=== PATIENT | female | born 1955 | race Hispanic/Latino ===

== ENCOUNTER → 2017-12-11 | Outpatient (CLI) | payer MEDICAID ==
[~2017-12-11] MED LIST: ACETAMINOPHEN PO; DULO60CA44 PO; ELET40TA PO; HYDROCODONE PO; LEVE500T19 PO; LORA1TAB3 PO; MIRT30TA6 PO; OLAN5TAB27 PO; OLME40TA8 PO; PREM125 PO; TIZA4CAP8 PO; ZOLPIDEM PO
== END ==
LOC: OIH 09:42
PROVIDERS: ATTEND Internal Medicine
DX: J45.20 Mild intermittent asthma, uncomplicated (principal)
CPT/HCPCS: 71046

== ENCOUNTER → 2019-07-19 | Outpatient (CLI) | payer MEDICAID | END | disposition home or self-care (01) | LOC: OIH 16:33 | PROVIDERS: ATTEND Internal Medicine | DX: H05.222 Edema of left orbit (principal); F41.9 Anxiety disorder, unspecified; F32.9 Major depressive disorder, single episode, unspecified; J45.909 Unspecified asthma, uncomplicated; Z88.5 Allergy status to narcotic agent; Z88.8 Allergy status to other drugs, medicaments and biological substances | CPT/HCPCS: 70150; 70250 ==

== ENCOUNTER → 2023-12-14 | Outpatient (CLI) | payer OTHER, MEDICAID ==
[~2023-12-14] MED LIST changes: -DULO60CA44 PO; +DULO60CA45 PO; +MIRT-93 PO; -MIRT30TA6 PO; -OLAN5TAB27 PO; +OLAN5TAB76 PO; +OLME40TA70 PO; -OLME40TA8 PO
== END | disposition home or self-care (01) ==
LOC: OIH 11:56
PROVIDERS: ATTEND Internal Medicine
DX: J45.909 Unspecified asthma, uncomplicated (principal); I10 Essential (primary) hypertension; M47.815 Spondylosis without myelopathy or radiculopathy, thoracolumbar region
CPT/HCPCS: 71046

== ENCOUNTER → 2024-05-27 | Outpatient (CLI) | payer OTHER, MEDICAID ==
[~2024-05-27] VITALS: Ht 162.6 cm; Wt 69.8 kg
[~2024-05-27] MED LIST changes: +ALBU1.252 IH; +ALBU18HF7 IH; +ATOG60TA PO; +CARB-38 PO; +CARI3CAP PO; +DICY10CA2 PO; +FAMO40TA7 PO; +FLUT16H NS; +FOLI0.8T22 PO; +FOLI0.8T53 PO; +ISOS30TA92 PO; +LEVO25CA4 PO; +LOSA100T59 PO; +METO-391 PO; +METO5TAB2 PO; +OMEP40CA21 PO; +ONDA-104 PO; +POTA-202 PO; +RIME75TA PO; +SOLI10TA7 PO; +TRAZ-185 PO; +TRIH2TAB3 PO; +TRINTELLIX PO
[2024-05-27 09:50] VITALS: BP 87/47; PULSE 54; RESP 18; TEMP 97.1
[2024-05-27 09:57] LABS: BASOPHILS # (AUTO) 0.02 K/uL (0.00-0.20); BASOPHILS % (AUTO) 0.4 % (0.0-5.0); EOSINOPHILS # (AUTO) 0.03 K/uL (0.00-0.70); EOSINOPHILS % (AUTO) 0.5 % (0.0-8.0); HEMATOCRIT 33.1 % (36-48); IMMATURE GRANULOCYTE ABSOLUTE 0.03 K/uL (0-1); LYMPHOCYTES # (AUTO) 2.3 K/uL (1.0-4.8); LYMPHOCYTES % (AUTO) 41.8 % (21.0-51.0); MEAN CORPUSCULAR HEMOGLOBIN 31.2 pg (27.0-33.0); MEAN CORPUSCULAR HGB CONC 32.3 g/dL (32.0-36.0); MEAN CORPUSCULAR VOLUME 96.5 fL (79-99); MONOCYTES # (AUTO) 0.5 K/uL (0.1-1.0); MONOCYTES % (AUTO) 9.5 % (3.0-13.0); NEUTROPHILS # (AUTO) 2.6 K/uL (1.8-7.7); NEUTROPHILS % (AUTO) 47.3 % (40.0-77.0); PLATELET COUNT (AUTO) 241 K/uL (130-400); RED BLOOD CELL COUNT(AUTO) 3.43 MIL/uL (4.00-5.50); RED CELL DISTRIBUTION WIDTH 13.2 % (11.0-15.5); WHITE BLOOD COUNT (AUTO) 5.5 K/uL (4.8-10.8)
[2024-05-27 10:04] LABS: CREATININE 2.1 mg/dL (0.5-1.0); POTASSIUM 4.6 mmol/L (3.5-5.1)
[2024-05-27 12:06] LABS: BAND NEUTROPHILS % (MANUAL) 3 % (0-2); LYMPHOCYTES % (MANUAL) 42 % (22-44); MAN.DIFF COMMENT-IMPRESSION MANUAL DIFFERENTIAL; MONOCYTES % (MANUAL) 4 % (2-9); MYELOCYTES % 1 % (0-0); REACTIVE LYMPHOCYTES 1 % (0-0); SEGMENTED NEUTROPHILS % 49 % (40-70); TOTAL CELLS COUNTED 100
[2024-05-27 12:08] LABS: PLATELET MORPHOLOGY COMMENT ADEQUATE
== END | disposition home or self-care (01) ==
LOC: DAH 10:00 → EDSTATUS 05-28 16:00
PROVIDERS: ATTEND Surgery
DX: Z01.818 Encounter for other preprocedural examination (principal); K80.20 Calculus of gallbladder without cholecystitis without obstruction; G20.B2 Parkinson's disease with dyskinesia, with fluctuations; R00.2 Palpitations; I10 Essential (primary) hypertension; F41.9 Anxiety disorder, unspecified; F32.A Depression, unspecified; E03.9 Hypothyroidism, unspecified; M19.90 Unspecified osteoarthritis, unspecified site; G40.909 Epilepsy, unspecified, not intractable, without status epilepticus; Z90.710 Acquired absence of both cervix and uterus; Z79.899 Other long term (current) drug therapy; Z88.0 Allergy status to penicillin; Z88.5 Allergy status to narcotic agent; Z80.42 Family history of malignant neoplasm of prostate; Z98.890 Other specified postprocedural states; Z53.8 Procedure and treatment not carried out for other reasons
CPT/HCPCS: 36415; 80048; 85025; 86850; 86900; 86901; 93005

== ENCOUNTER 2024-06-27 06:13 | Day surgery (SDC) | payer OTHER, MEDICARE ==
[2024-06-25 10:34] VITALS: BP 151/73; PULSE 71; RESP 16; TEMP 97.3
[2024-06-27] VITALS (12 sets, daily range): BP systolic 120–154; BP diastolic 51–69; PULSE 63–83; RESP 16–19; TEMP 97.6–98
[~2024-06-27] VITALS: Ht 162.6 cm; Wt 70.6 kg
[~2024-06-27 06:13] MED LIST changes: -ACETAMINOPHEN PO; -CARI3CAP PO; +CEFD300C3 PO; -DULO60CA45 PO; -ELET40TA PO; -HYDROCODONE PO; -LEVE500T19 PO; -LORA1TAB3 PO; +LURA20TA PO; -MIRT-93 PO; +MONT-39 PO; -OLAN5TAB76 PO; -OLME40TA70 PO; +PANT40TA54 PO; -PREM125 PO; -RIME75TA PO; -ZOLPIDEM PO
[2024-06-27] MEDS ORDERED: BUPIvacaine/PF 0.25% 30ML VIAL IJ ONE (06:58)
[2024-06-27] MEDS ORDERED: INDOCYANINE GREEN 25 MG VIAL IJ ONE (07:02)
[2024-06-27] MEDS ORDERED: CLINDAMYCIN IVPB 900MG/50ML 50 ML IV ONE (07:03)
[2024-06-27] MEDS ORDERED: LIDOCAINE PF 100MG/5ML (2%) SYRINGE 5ML ONE ×2 (07:05→07:07)
[2024-06-27] MEDS ORDERED: dexaMETHasone SOD PHOSPHATE 10MG/ML 1ML VIAL ONE (07:05)
[2024-06-27] MEDS: ceFAZolin SODIUM 2 GM VIAL ONE (07:06)
[2024-06-27] MEDS ORDERED: NEOSTIGMINE METHYLSULFATE 1MG/ML IV ONE (07:06)
[2024-06-27] MEDS ORDERED: GLYCOPYRROLATE 0.2 MG/ML 5 ML VIAL ONE (07:06)
[2024-06-27] MEDS ORDERED: SUCCINYLCHOLINE CHLORIDE 20 MG/ML 10 ML VIAL ONE (07:06)
[2024-06-27] MEDS ORDERED: ondanSETRON 4MG INJ ONE (07:06)
[2024-06-27] MEDS ORDERED: proPOFol 10 MG/ML 20ML VIAL IV ONE (07:06)
[2024-06-27 07:07] LABS: BASOPHILS # (AUTO) 0.03 K/uL (0.00-0.20); BASOPHILS % (AUTO) 0.4 % (0.0-5.0); EOSINOPHILS % (AUTO) 2.8 % (0.0-8.0); HEMATOCRIT 30.6 % (36-48); IMMATURE GRANULOCYTE ABSOLUTE 0.02 K/uL (0-1); LYMPHOCYTES # (AUTO) 2.4 K/uL (1.0-4.8); LYMPHOCYTES % (AUTO) 33.1 % (21.0-51.0); MEAN CORPUSCULAR HGB CONC 32.4 g/dL (32.0-36.0); MONOCYTES # (AUTO) 0.6 K/uL (0.1-1.0); MONOCYTES % (AUTO) 8.9 % (3.0-13.0); NEUTROPHILS # (AUTO) 3.9 K/uL (1.8-7.7); NEUTROPHILS % (AUTO) 54.5 % (40.0-77.0); PLATELET COUNT (AUTO) 241 K/uL (130-400); RED BLOOD CELL COUNT(AUTO) 3.09 MIL/uL (4.00-5.50); RED CELL DISTRIBUTION WIDTH 13.6 % (11.0-15.5); WHITE BLOOD COUNT (AUTO) 7.2 K/uL (4.8-10.8)
[2024-06-27] MEDS ORDERED: rocuRONium bROMide 10MG/1ML 5ML VL ONE (07:07)
[2024-06-27] MEDS ORDERED: FENTanyl CITRate PF 50 MCG/1 ML 2ML VIAL ONE (07:07)
[2024-06-27] MEDS: LACTATED RINGERS 1000ML 1,000 ML IV ONE (07:07)
[2024-06-27] MEDS ORDERED: MIDAZOLAM HCL 1 MG/ML 2ML VIAL ONE (07:07)
[2024-06-27] MEDS ORDERED: phenylEPHRINE HCL 10 MG/ML 1ML VIAL IV ONE (07:36)
[2024-06-27] MEDS: CLINDAMYCIN 900MG/6ML INJ IV ONE (08:01)
[2024-06-27] MEDS ORDERED: ePHEDrine SULFate 50 MG/ML AMPULE ONE (08:16)
[2024-06-27] MEDS: MEPERIDINE-PF 25 MG/ML SYG ONE (09:51)
== END 2024-06-27 11:09 | disposition home or self-care (01) ==
LOC: DAH 06:13
PROVIDERS: ATTEND Surgery
DX: K80.10 Calculus of gallbladder with chronic cholecystitis without obstruction (principal); I10 Essential (primary) hypertension; F32.A Depression, unspecified; M19.90 Unspecified osteoarthritis, unspecified site; J45.909 Unspecified asthma, uncomplicated; G20.A1 Parkinson's disease without dyskinesia, without mention of fluctuations; E03.9 Hypothyroidism, unspecified; G40.909 Epilepsy, unspecified, not intractable, without status epilepticus; G20.B2 Parkinson's disease with dyskinesia, with fluctuations; R00.2 Palpitations; Z88.0 Allergy status to penicillin; Z88.5 Allergy status to narcotic agent; Z88.8 Allergy status to other drugs, medicaments and biological substances; Z90.710 Acquired absence of both cervix and uterus; Z79.899 Other long term (current) drug therapy
CPT/HCPCS: 86850; 86900; 86901; 36415 ×2; 47563; 85025; 88304; A6260; A4223 ×2; A4600; A4663; J7030; J7120 ×2; A4215 ×2; J3010; J1100; J0330; J0665 ×2; J3490 ×4; J2003 ×2; J2250; J2704; J2405; J2710; J2175; J2371; G0168; A4649; A4222; A4221; A4216; J0690

== ENCOUNTER → 2024-08-27 | Outpatient (CLI) | payer OTHER, MEDICARE ==
[~2024-08-27] MED LIST changes: -DICY10CA2 PO; -FOLI0.8T22 PO
--- NOTE | 2024-08-27 11:15 | HMCIMG ---
CT HEAD/BRAIN W/O CONTRAST HISTORY: Contusion COMPARISON: None TECHNIQUE: Multiple sequential axial images of the head were obtained from the base of the skull through vertex. Patient was not given contrast through intravenous route. FINDINGS: The ventricles and extraventricular CSF spaces are dilated consistent with cerebral atrophy. Nonspecific white matter changes seen. There is no midline shift, mass effect or herniation. No acute intracranial bleed is seen. There are bilateral maxillary sinusitis. Post sinus surgical changes are seen. IMPRESSION: 1. No acute intracranial bleed is seen. 2. Atrophy with white matter changes. CT was performed with one or more following dose reduction techniques: automated exposure control, adjustment of the mA and kv according to patient's size, or use of a iterative reconstruction technique.
== END | disposition home or self-care (01) ==
LOC: RAH 10:35
PROVIDERS: ATTEND Internal Medicine
DX: S05.10XA Contusion of eyeball and orbital tissues, unspecified eye, initial encounter (principal); G31.89 Other specified degenerative diseases of nervous system; J32.0 Chronic maxillary sinusitis; X58.XXXA Exposure to other specified factors, initial encounter; Y93.9 Activity, unspecified; Y92.89 Other specified places as the place of occurrence of the external cause; Y99.8 Other external cause status
CPT/HCPCS: 70450